=== PATIENT | female | born 1990 | race Caucasian/White ===

== ENCOUNTER 2025-02-06 14:20 | Emergency (ER) | payer OTHER, SELFPAY ==
[2025-02-06 14:35] VITALS: BP 127/77; PULSE 85; TEMP 36.8; O2SAT 100; BMI 24.8
--- OUTSIDE RECORDS SUMMARY | 2025-02-06 14:47 | XMS_ITS | Clinical Summary ---
Author Organization [facility] tem Address [id number] [address] [place] [address] Care Team Providers [employer] Coordinator Name Role Phone No Pcp, No Pcp Primary Care Provider Unavailabl e Allergies Active Allergy Reactions Criticality Noted Date Comments Erythromycin 02/09/2023 Sulfa (Sulfonamide Antibiotics) 01/24 Social History Tobacco Use Types Packs/Day Years Used Date Smoking Tobacco: Never Smokeless Tobacco: Never Tobacco Cessation:Counseling Given: Not Answered Alcohol Use Standard Drinks/Week Comments Never 0 (1 standard drink = 0.6 oz pur e alcohol) Childcare Answer Date Recorded Childcare Unknown 01/05/2019 Employment Answer Date Recorded Employment Unknown 01/05/2019 Hunger Screening Answer Date Recorded Within the past 12 months we worried whether our food would run out before we got money to buy more. Never True 02/09/2023 Within the past 12 months th e food we bought just didn't last and we didn't have money to get more. Never True 02/09/2023 Comments No Sex and Gender Information Value Date Recorded Sex Assigned at Female 02/09/2023 9:07 AM EDT Legal Sex Female 12:12 PM EDT Gender Identity Female 02/09/2023 9:07 AM EDT Sexual Orientation Straight 02/09/2023 9: 07 AM EDT Last Filed Vital Signs Vital Sign Reading Time Taken Comments Blood Pressure 121/82 02/09/2023 9:17 AM EDT Pulse 81 02/09/2023 9:17 AM EDT Temperature 36.5 C (97.7 F) 02/09/2023 9:17 AM EDT Respiratory Rate 14 02/09/2023 9:17 AM EDT Oxygen Saturation 100% 02/09/2023 9:17 AM EDT Inhaled Oxygen Concentration - - Weight 73.9 kg (163 lb) 02/09/2023 9:17 AM EDT Height 165.1 cm (5' 5 ) 02/09/2023 9:17 AM EDT Body Mass Index 27.12 02/09/2023 9:17 AM EDT Plan of Treatment Health Maintenance Due Date Last Done Comments Depression Screening 2000 DTaP,Tdap and Td Vaccines (1 - Tdap) 02/26/2007 Pap Smear 02/26/2009 Adult BMI Screening 02/10/2024 02/09/2023 Tobacco Screening 02/10/2024 02/09/2023 COVID-19 Vaccine (2023-2 5 season) 2024 07/01/2021, 09/05/2020, 08/09/2020 Influenza Vaccine 03/27/2025 04/26/2019, 04/26/2019 Medical Devices Not on file Insurance [facility] [employer] Care Teams [employer] Coordinator Relationship Specialty Start Date End Date No Pcp, No Pcp CHRISTAL Agosto [id number] PCP - General Family Medicine 02/09/23
--- OUTSIDE RECORDS SUMMARY | 2025-02-06 14:47 | XMS_ITS | Data Portability ---
Author Organization [place] - .[facility], [facility] Address [address] [place] [address] Care Team Providers Care Pop Singer Name Role Phone DOMINIC GIBSON Primary Care Provider Assessment No assessment recorded. Plan of Treatment Reminders Order Date Submit Date Provider Last Modified By Organization Details Last Modified Time Details Appointments None recorded. Lab rapid SARS CoV 2 Ag, QL IA, respiratory specimen 2022 023 yoni [facility] [address], [address] [place] [address], [id number], 3 21:07:21 SARS CoV 2 RNA (COVID-19), QL, certified adaptive physical educator-PCR, respiratory specimen 2022 023 [facility], [address] [place] [address], [address], 3 01:18:00 rapid strep group A, throat [address] [facility], [address] [place] [address], [phone], 3 20:58:17 culture, throat 2022 023 [facility], [address] [place], [address], 3 11:19:34 rapid flu (A+B) 2021 022 [facility] [place] , [address] [place], [address], 20:00:27 rapid SARS CoV 2 Ag, QL IA, respiratory specimen 2021 022 [facility] [place] , [address] [place], [address], 20:00:27 rapid strep group A, throat 2021 022 [email or web address] 6 [facility] , [address] [place], [address], 15:34:56 rapid flu (A+B) [email or web address] [facility] , [address] [place], [address], 15:34:56 culture, throat 2021 [facility], [address] [place] [address], [address], 21:40:58 rapid SARS CoV 2 Ag, QL IA, respiratory specimen 2021 [facility] [place] , [address] [place], [address], 16:15:07 SARS CoV 2 RNA (COVID-19), QL, certified adaptive physical educator-PCR, respiratory specimen 2021 [facility], [address] [place] [address], [address], 01:06:38 culture, throat 2021 [facility], [address] [place] [address], [address], 22:39:39 rapid strep group A, throat 2021 [place] [id number] 2 [facility] [place] [address] [place], [address], 20:17:42 rapid SARS CoV 2 Ag, QL IA, respiratory specimen 2021 [place] [id number] 2 [facility] [address] [place], [address], 20:17:42 SARS CoV 2 RNA (COVID-19), QL, certified adaptive physical educator-PCR, respiratory specimen 2021 [facility], [address] [place], [address], 02:24:04 rapid flu (A+B) 2021 [place] [id number] 2 [facility] [address] [place], [address], 20:17:42 CT + NG DNA, PCR, unspecified specimen 2021 [facility], [address] [place] [address], [address], 17:16:31 Referral None recorded. Procedures None recorded. Surgeries None recorded. Imaging None recorded. Medication Orders amoxicillin 875 mg tablet 2022 023 rrluigi [place] Reade - [address] [place], [place], [id number], 3 20:58:17 Diflucan 150 mg tablet 2022 023 rrenacci Sergio Reade - [address] [place], [place], [id number], 3 20:58:17 amoxicillin 875 mg tablet 2021 022 [email or web address] 2 Sergio Ren - [address], [place], [place], [id number], 20:17:42 Patient TargetsNo targets recorded. Patient Instructions Encounter Date Encounter Id Patient Instructions Last Modified By Organization Details Last Modified Time 05/01/2022 [id number] A healthy lifest yle: care instructions [email or web address] Not available 05/01/2022 20:17:42 Thank you for visiting [facility]. There are two ways to view your lab results: : 1. The dINK jose is available to all patients 18 and older in the [employer] Store and [employer]. First-time jose users will need to create an account; please note you ll need to select a login and password for the jose versus just using your patient portal login credentials. Your lab results will be posted to the dINK jose as soon as they re available. 2. Via email , as soon as lab results are available. If you don t receive an email within the estimated time frame, give our Aftercare team a call at [phone]. [email or web address] Not available 05/01/2022 15:13:39 06/04/2022 [id number] A healthy lifest yle: care instructions Not available 06/04/2022 15:46:18 9 things to do i f you've been exposed to covid-19 Not available 06/04/2022 15:46:18 Thank you for visiting [facility]. There are two ways to view your lab results: : 1. The dINK jose is available to all patients 18 and older in the [facility] Store and [employer]. First-time jose users will need to create an account; please note you ll need to select a login and password for the jose versus just using your patient portal login credentials. Your lab results will be posted to the dINK jose as soon as they re available. 2. Via email , as soon as lab results are available. If you don t receive an email within the estimated time frame, give our Aftercare team a call at [phone]. [email or web address] Not available 06/04/2022 14:58:40 06/23/2022 [id number] A healthy lifest yle: care instructions [email or web address] Not available 06/23/2022 20:00:27 Thank you for visiting [facility]. There are two ways to view your lab results: : 1. The dINK jose is available to all patients 18 and older in the [employer] Store and [employer]. First-time jose users will need to create an account; please note you ll need to select a login and password for the jose versus just using your patient portal login credentials. Your lab results will be posted to the dINK jose as soon as they re available. 2. Via email , as soon as lab results are available. If you don t receive an email within the estimated time frame, give our Aftercare team a call at [phone]. [email or web address] Not available 06/23/2022 19:21:42 12/10/2022 [id number] A healthy lifest yle: care instructions [email or web address] Not available 12/10/2022 20:58:17 Thank you for visiting [facility].There are two ways to view your lab results: : 1. The dINK jose is available to all patients 18 and older in the [employer] Store and [employer]. First-time jose users will need to create an account; please note you ll need to select a login and password for the jose versus just using your patient portal login credentials. Your lab results will be posted to the dINK jose as soon as they re available. 2. Via email , as soon as lab results are available. If you don t receive an email within the estimated time frame, give our Aftercare team a call at [phone]. Otalgia Your Care Instructions Even though infection is a common cause of ear pain, not all ear pain means an infection. If you have ear pain and don''t have an infection, it could be because of a jaw problem, such as temporomandibular joint (TMJ) pain. Or it could be because of a neck problem. When ear discomfort or pain is mild or comes and goes without other symptoms, home treatment may be all you need. Follow-up care is a clark part of your treatment and safety. Be sure to make and go to all appointments, and call your doctor if you are having problems. It''s also a good idea to know your test results and keep a list of the medicines you take. How can you care for yourself at home? Apply heat on the ear to ease pain. To apply heat, put a warm water bottle, a heating pad set on low, or a warm cloth on your ear. Do not go to sleep with a heating pad on your skin. Take an mljr-ohu-ffltmfe pain medicine, such as acetaminophen (Tylenol), ibuprofen (Advil, Motrin), or naproxen (Aleve). Be safe with medicines. Read and follow all instructions on the label. Do not take two or more pain medicines at the same time unless the doctor told you to. Many pain medicines have acetaminophen, which is Tylenol. Too much acetaminophen (Tylenol) can be harmful. Never insert anything, such as a cotton swab or a josef pin, into the ear. When should you call for help? Call your doctor now or seek immediate medical care if: You have new or worse symptoms of infection, such as: Increased pain, swelling, warmth, or redness. Red streaks leading from the area. Pus draining from the area. A fever. Watch closely for changes in your health, and be sure to contact your doctor if: You have new or worse discharge coming from the ear. You do not get better as expected. Pharyngitis Your Care Instructions Infection by bacteria or a virus causes most sore throats. Cigarette smoke, dry air, air pollution, allergies, and yelling can also cause a sore throat. Sore throats can be painful and annoying. Fortunately, most sore throats go away on their own. If you have a bacterial infection, your doctor may prescribe antibiotics. Follow-up care is a clark part of your treatment and safety. Be sure to make and go to all appointments, and call your doctor if you are having problems. It''s also a good idea to know your test results and keep a list of the medicines you take. How can you care for yourself at home? If your doctor prescribed antibiotics, take them as directed. Do not stop taking them just because you feel better. You need to take the full course of antibiotics. Gargle with warm salt water once an hour to help reduce swelling and relieve discomfort. Use 1 teaspoon of salt mixed in 1 cup of warm water. Take an gxrb-psf-knqtbka pain medicine, such as acetaminophen (Tylenol), ibuprofen (Advil, Motrin), or naproxen (Aleve). Read and follow all instructions on the label. Be careful when taking upft-lnu-xtuykay cold or flu medicines and Tylenol at the same time. Many of these medicines have acetaminophen, which is Tylenol. Read the labels to make sure that you are not taking more than the recommended dose. Too much acetaminophen (Tylenol) can be harmful. Drink plenty of fluids. Fluids may help soothe an irritated throat. Hot fluids, such as tea or soup, may help decrease throat pain. Use bbco-lhb-yfowkpd throat lozenges to soothe pain. Regular cough drops or hard candy may also help. These should not be given to young children because of the risk of choking. Do not smoke or allow others to smoke around you. If you need help quitting, talk to your doctor about stop-smoking programs and medicines. These can increase your chances of quitting for good. Use a vaporizer or humidifier to add moisture to your bedroom. Follow the directions for cleaning the machine. When should you call for help? Call your doctor now or seek immediate medical care if: You have new or worse trouble swallowing. Your sore throat gets much worse on one side. Watch closely for changes in your health, and be sure to contact your doctor if you do not get better as expected. [email or web address] Not available 12/10/2022 20:45:53 03/26/2023 [id number] A healthy lifest yle: care instructions [email or web address] Not available 03/26/2023 21:07:21 9 things to do i f you've been exposed to covid-19 [email or web address] Not available 03/26/2023 21:07:21 Thank you for visiting [facility]. We may be calling you to review your lab results or schedule a follow up appointment. The call will be through an automated system which asks you to press a clark to speak with one of our agents. Please be on the lookout for this call and listen to the message in its entirety. You may also view your lab results using the dINK jose, available in the [employer] Store and [employer]. First-time jose users will need to create an account; please note you ll need to select a login and password for the jose versus just using your patient portal login. Your lab results will be posted to the dINK jose as soon as they re available. If you have any questions regarding your visit, our Aftercare department can be reached at [phone]. Our hours are Thursday from 8 am 11 pm or Thursday/Thursday from 9a 8p. [email or web address] Not available 03/26/2023 20:03:51 Reason for Referral None Reported. Results Created Date Observation Date Name Description Value Unit Range Abnormal Flag Note LastModifiedBy Organization Detail LastModifiedTime 05/01/20 22 05/02/2022 CULTU RE THROA T culture, throat SEE NOTE CULTU RE, THROA T Micro Numbe r: [id number] Test Statu s: Final Speci men Sourc e: Not given Speci men Quali ty: Adequ ate Resul t: No oroph aryng eal patho gens recov ered. Not Available [facility] [address] [facility], [place], [address], 05/02/2022 22:39:39 05/01/20 22 05/03/2022 SARS COV 2 RT-PC R sars cov 2 RNA NOT DETECT ED not detect ed normal A Not Detec buck resul t means that SARS- CoV-2 RNA was not prese nt in the speci men above the limit of detec tion. A Not Detec buck resul t does not rule out the possi bilit y of COVID -19 and shoul d not be used as the sole basis for treat ment or patie nt manag ement decis ions. If COVID -19 is still suspe cted, based on expos ure histo ry toget her with other clini cody findi ngs, re-te sting shoul d be consi dered in the yolanda xt of clini cody obser vatio ns and epide miolo gical data for patie nt manag ement decis ions. Test Metho d: Nucle ic Acid Ampli ficat ion Test inclu ding rever se trans cript ion polym erase chain react ion (RT-P CR) and trans cript ion media buck ampli ficat ion (TMA) . The test metho d meets the [place] Cente rs for Disea se Contr ol and preve ntion ([facility]) pre depar ture and arriv al requi remen t for viral test for COVID -19 dated 2020. Testi ng requi remen ts for travgraciela franco may carney e with time. The patie nt is respo nsibl e for deter minin g the test requi remen ts for each natio n while they are travgraciela franco. This test has been autho rized by the FDA under an Emerg ency Use Autho rizat ion (EUA) for use by autho rized labor atori es. Plemalissa e damian w the Fact Sheet s and FDA autho rized label ing avail able for healt h care provi ders and patie nts using the follo wing websi kelly: https ://flaco w.que stdia gnost ics.c om/ho me/Co vid-1 9/HCP /Ques tIVD/ fact- sheet .html https ://flaco w.que stdia gnost ics.c om/ho me/Co vid-1 9/Pat ients / [facility] IVD/f act-s heet. html Due to the curre nt publi c healt h emerg ency, [facility] is accep meredith melendez es from appro priat e clini cody sourc es colle cted using wide varie ty of swabs and trans port media for COVID -19. Not detec buck test resul ts deriv ed from speci mens recei ned in non- comme rcial ly manuf actur ed viral colle ction kits or those not yet autho rized by FDA for COVID -19 testi ng shoul d be cauti ously evalu ated and take extra preca ution s such as addit ional clini cody monit oring , inclu ding colle ction of an addit ional speci men. Addit ional infor matio n about COVID -19 can be found at the [facility] websi te: www.Kristy uAlonzo iagno stics .com/ Covid 19. For patie nts with a Detec buck or Incon clusi ve test resul t, pleas e see CDC's COVID -19 Treat ments and Medic ation s page locat ed at https ://ww w.cdc .gov/ coron aviru s/ 9-nco v/you r-hea lth/t reatm ents- for- sever e-ill ness. html for infor matio n on COVID -19 thera peuti cs. For patie nts with a Not Detec buck test resul t, pleas e see CDC's Vacci nandini for COVID -19 page locat ed at https ://ww w.cdc .gov/ coron aviru s/ 9-nco v/vac cines /inde x.htm l for infor matio n on COVID -19 vacci nandini. Not Available [facility] [address] [place] [address], [address], 05/03/2022 02:24:04 05/01/20 22 05/03/2022 CHLAM YDIA/ GC RNA TMA THROA T/ORA L chlamydia trachomatis RNA, tma, throat NOT DETECT ED not detect ed normal Not Available [facility] [address] [place] [address], [address], 05/03/2022 17:16:30 05/01/20 22 05/03/2022 CHLAM YDIA/ GC RNA TMA THROA T/ORA L neisseria gonorrhoeae RNA, tma, throat NOT DETECT ED not detect ed normal Not Available [facility] [address] [place] [address], [address], 05/03/2022 17:16:30 05/01/20 22 05/03/2022 CHLAM YDIA/ GC RNA TMA THROA T/ORA L comment SEE NOTE The marcus tical perfo rmanc e jeremi cteri stics of this assay have been deter mined by [facility] Sandra anton. The modif icati ons have not been clear ed or appro ned by the FDA. This assay has been valid ated pursu ant to the CLIA regul ation s and is used for clini cody purpo ses. Not Available d Lab [address] [place], [address], 05/03/2022 17:16:30 05/01/20 22 05/01/2022 rapid flu (A+B) Flu A (control pos) NEGATI VE Not Available [address] [place] [address], [address], 05/01/2022 15:17:29 05/01/20 22 05/01/2022 rapid flu (A+B) Flu B (control pos) NEGATI VE Not Available [address] [place] [address], [address], 05/01/2022 15:17:29 05/01/20 22 05/01/2022 rapid SARS CoV 2 Ag, QL IA, respi rator y speci men Rapid COVID-19 Antigen (Internal Control Positive) Negati ve Not Available [address] [place] [address], [address], 05/01/2022 15:17:17 05/01/20 22 05/01/2022 rapid strep group A, throa t Group A Strep / internal control positive NEGATI VE (inter nal contro l positi ve) Not Available [facility] [address] [place] [address], [address], 05/01/2022 15:17:15 06/04/20 22 06/05/2022 CULTU RE THROA T culture, throat SEE NOTE CULTU RE, THROA T Micro Numbe r: [id number] Test Statu s: Final Speci men Sourc e: Not given Speci men Quali ty: Adequ ate Resul t: No oroph aryng eal patho gens recov ered. Not Available d [facility] [address], [place], [address], 06/05/2022 21:40:58 06/04/20 22 06/06/2022 SARS COV 2 RT-PC R sars cov 2 RNA NOT DETECT ED not detect ed normal A Not Detec buck resul t means that SARS- CoV-2 RNA was not prese nt in the speci men above the limit of detec tion. A Not Detec buck resul t does not rule out the possi bilit y of COVID -19 and shoul d not be used as the sole basis for treat ment or patie nt manag ement decis ions. If COVID -19 is still suspe cted, based on expos ure histo ry toget her with other clini cody findi ngs, re-te sting shoul d be consi dered in the yolanda xt of clini cody obser vatio ns and epide miolo gical data for patie nt manag ement decis ions. Test Metho d: Nucle ic Acid Ampli ficat ion Test inclu ding rever se trans cript ion polym erase chain react ion (RT-P CR) and trans cript ion media buck ampli ficat ion (TMA) . The test metho d meets the US Cente rs for Disea se Contr ol and preve ntion (CDC) pre depar ture and arriv al requi remen t for viral test for COVID -19 dated 2020. Testi ng requi remen ts for trave ling may carney e with time. The patie nt is respo nsibl e for deter minin g the test requi remen ts for each natio n while they are trave ling. This test has been autho rized by the FDA under an Emerg ency Use Autho rizat ion (EUA) for use by autho rized labor atori es. Pleas e damian w the Fact Sheet s and FDA autho rized label ing avail able for healt h care provi ders and patie nts using the follo wing websi kelly: https ://flaco ornelas.harleen stdia gnost ics.c om/ho me/Co vid-1 9/HCP /Ques tIVD/ fact- sheet .html https ://flaco ornelas.harleen stdia gnost ics.c om/ho me/Co vid-1 9/Pat ients / [facility] IVD/f act-s heet. html Due to the curre nt publi c healt h emerg ency, [facility] is accep ting sampl es from appro priat e clini cody sourc es colle cted using wide varie ty of swabs and trans port media for COVID -19. Not detec buck test resul ts deriv ed from speci mens recei ned in non- comme rcial ly manuf actur ed viral colle ction kits or those not yet autho rized by FDA for COVID -19 testi ng shoul d be cauti ously evalu ated and take extra preca ution s such as addit ional clini cody monit oring , inclu ding colle ction of an addit ional speci men. Addit ional infor matio n about COVID -19 can be found at the [facility] websi te: www.Giant Realm uestD creadso In Flow .ICONOGRAFICO/ Covid 19. For patie nts with a Detec buck or Incon clusi ve test resul t, pleas e see CDC's COVID -19 Treat ments and Medic ation s page locat ed at https ://ww w.cdc .gov/ coron aviru s/201 9-nco v/you r-hea lth/t reatm ents- for- sever e-ill ness. html for infor matio n on COVID -19 thera peuti cs. For patie nts with a Not Detec buck test resul t, pleas e see CDC's Vacci nandini for COVID -19 page locat ed at https ://ww w.cdc .gov/ coron aviru s/201 9-nco v/vac cines /inde x.htm l for infor matio n on COVID -19 vacci nandini. Not Available d Lab [address], [place], [address], 06/06/2022 01:06:38 06/04/20 22 06/04/2022 rapid SARS CoV 2 Ag, QL IA, respi rator y speci men Rapid COVID-19 Antigen (Internal Control Positive) Negati ve Not Available [facility] [address] [place], [address], 06/04/2022 15:18:47 06/04/20 22 06/04/2022 rapid flu (A+B) Flu A (control pos) NEGATI VE Not Available [address] [place], [address], 06/04/2022 15:18:51 06/04/20 22 06/04/2022 rapid flu (A+B) Flu B (control pos) NEGATI VE Not Available [facility] [address] [place], [address], 06/04/2022 15:18:51 06/04/20 22 06/04/2022 rapid strep group A, throa t Group A Strep / internal control positive NEGATI VE (inter nal contro l positi ve) Not Available [facility] [address] [place], [address], 06/04/2022 15:18:49 06/23/20 22 06/23/2022 rapid SARS CoV 2 Ag, QL IA, respi rator y speci men Rapid COVID-19 Antigen (Internal Control Positive) Negati ve Not Available [address] [place], [address], 06/23/2022 19:30:17 06/23/20 22 06/23/2022 rapid flu (A+B) Flu A (control pos) NEGATI VE Not Available [address] [place], [address], 06/23/2022 19:30:29 06/23/20 22 06/23/2022 rapid flu (A+B) Flu B (control pos) NEGATI VE Not Available [address] [place] [address], [address], 06/23/2022 19:30:29 12/11/19 23 12/12/2022 CULTU RE THROA T culture, throat SEE NOTE CULTU RE, THROA T Micro Numbe r: [id number] Test Statu s: Final Speci men Sourc e: Not given Speci men Quali ty: Adequ ate Resul t: No oroph aryng eal patho gens recov ered. Not Available [facility] [address] [facility], [place], [address], 12/12/2022 11:19:34 12/11/19 23 12/10/2022 rapid strep group A, throa t Group A Strep / internal control positive NEGATI VE (inter nal contro l positi ve) Not Available [address], [address], 12/10/2022 20:43:17 03/26/20 23 03/28/2023 SARS COV 2 RT-PC R sars-cov-2 RNA (covid19) by PCR NEGATI VE negati ve normal Posit sergio resul ts are indic ative of the prese nce of SARS- CoV-2 RNA; clini cody corre latio n with patie nt histo ry and other diagn ostic infor matio n is neces milo to deter mine patie nt infec tion statu s. Posit sergio resul ts do not rule out bacte rial infec tion or co-in fecti on with other virus es. Posit sergio and negat sergio predi ctive value s of testi ng are highl y depen dent on preva lence . False posit sergio test resul ts are more likel y when preva lence is moder ate to low. The expec buck resul t is Negat sergio (Not Detec buck). The SARS CoV-2 test is inten ded for the quali tativ e detec tion of nucle ic acid from SARS- CoV-2 in nasop haryn geal and oroph aryng eal swab sampl es from patie nts who meet COVID -19 clini cody and/o r epide miolo gical crite laila. Testi ng metho dolog y is Real- Time PCR (RT-P CR) using high- throu ghput techn ology . Test resul ts must be corre lated with clini cody prese ntati on and evalu ated in the yolanda xt of other labor atory and epide miolo gi data. This test has not been Food and Drug Admin istra tion (FDA) clear ed or appro ned and has been autho rized by FDA under an Emerg ency Use Autho rizat ion (EUA) . Summi t Medic MATTHEW Gonzales. Labor atory is certi fied under the Clini cody Labor atory Impro vemen t Amend ments of 1987 (CLIA ), 42 U.S.C . secti on 263a, to perfo rm high compl exity tests . Not Available [facility] [address] [place], [address], 03/28/2023 01:18:00 03/26/20 23 03/26/2023 rapid SARS CoV 2 Ag, QL IA, respi rator y speci men Rapid COVID-19 Antigen (Internal Control Positive) Negati ve Not Available [facility] [address], [address], 03/26/2023 20:25:57 Result Notes None recorded. Problems Name Problem SNOMED Code Status Onset Date Resolution Date Notes Provider Name and Address Organization Details Recorded Time Asthma [id number] Active 021 [facility] - .[facility] 05/15/2021 08:04:18 Problem Notes None recorded. Medical Equipment None Reported. Allergies Allergen ID Allergen Name Allergen Category Reaction Reaction Severity Criticality Documentation Date Start Date Code Code System Note Provider Name and Address Organization Details Recorded Time 963015 Substance with sulfonami de structure and antibacte rial mechanism of action (substanc e) medicatio n Not available Not available Not available 05/15/2021 77640 8003 SNOMED [facility] - .[facility] 08:04:34 786079 azithromy greta medicatio n Not available Not available Not available 05/15/2021 75727 RxNorm [facility] - .[facility] 1 08:05:01 Medications Name Sig Start Date Stop Date Status Note LastModified by Organization Details LastModified Time methocarbamo l 500 mg tablet TAKE 3 TABLETS BY MOUTH FOR 1ST DOSE, THEN TAKE 2 TABLETS BY MOUTH EVERY 6 HOURS FOR 3 DAYS active Not Available Not Available No t Available Afrin Sinus (oxymetazoli ne) 0.05 % nasal spray [place] 2 sprays twice a day by intranasal route as needed for 3 days. 2020 active Not Available Not Available Not Avai lable Diflucan 150 mg tablet Take 1 tablet every day by oral route for 1 day. 2022 active Not Available Not Available Not Avai lable amoxicillin 875 mg tablet Take 1 tablet twice a day by oral route for 7 days. 2022 active Not Available Not Available Not Avai lable nitrofuranto in monohydrate/ macrocrystal s 100 mg capsule TAKE 1 CAPSULE BY MOUTH TWICE A DAY FOR 7 DAYS active Not Available Not Available No t Available Flonase Allergy Relief 50 mcg/actuatio n nasal spray,suspen ashanti [place] one spray into each nostril twice a day for 14 days 2020 active Not Available Not Available Not Avai lable Vitals Date Recorded Body height Heart rate Body temperature Respiratory rate Oxygen saturation Oxygen saturation in Arterial blood by Pulse oximetry Systolic And Diastolic Provider Name and Address Organization Details Last Updated DateTime 3 165.1 cm 84 /min 98.1 [degF] 16 /min 98 % 98 % 113/76 mm[Hg] Kulwinder Blackman [place] - .[facility] 3 20:36:04 Date Recorded Body height Body mass index (BMI) Body weight Respiratory rate Oxygen saturation Oxygen saturation in Arterial blood by Pulse oximetry Body temperature Heart rate Systolic And Diastolic Provider Name and Address Organization Details Last Updated DateTime 3 165.1 cm 31.6 kg/m2 47257.5 5 g 16 /min 98 % 98 % 97.8 [degF] 82 /min 103/72 mm[Hg] Nandini Willis [place] - [facility] 3 20:16:07 Date Recorded Body height Body mass index (BMI) Body weight Heart rate Body temperature Respiratory rate Oxygen saturation Oxygen saturation in Arterial blood by Pulse oximetry Systolic And Diastolic Provider Name and Address Organization Details Last Updated DateTime 2 165.1 cm 31.6 kg/m2 36178.5 5 g 71 /min 98.2 [degF] 16 /min 99 % 99 % 124/78 mm[Hg] Aashish Johnny [place] - .[facility] 2 15:13:34 Date Recorded Body height Body mass index (BMI) Body weight Heart rate Body temperature Respiratory rate Oxygen saturation Oxygen saturation in Arterial blood by Pulse oximetry Systolic And Diastolic Provider Name and Address Organization Details Last Updated DateTime 2 165.1 cm 31.6 kg/m2 78802.5 5 g 85 /min 98.1 [degF] 16 /min 97 % 97 % 112/78 mm[Hg] Aashish MILNER - .[facility] 2 15:18:31 Date Recorded Body height Body mass index (BMI) Body weight Oxygen saturation Oxygen saturation in Arterial blood by Pulse oximetry Respiratory rate Body temperature Heart rate Systolic And Diastolic Provider Name and Address Organization Details Last Updated DateTime 2 165.1 cm 31.6 kg/m2 34028.5 5 g 98 % 98 % 16 /min 98.1 [degF] 79 /min 117/76 mm[Hg] Dewayne Chavez [place] - .[facility] 2 19:30:00 Social History Question Answer Notes LastModified by Organizat ion Details LastModified Time Tobacco Smoking Status Never Smoker [facility] - .[facility] 05/15/2021 08:05:16 RISK LEVEL - Segmentation Level 1 - Healthy [email or web address] Information not available 10/03/2021 Sex: Unknown Functional Status Question Answer Note LastModified by Organizat ion Details LastModified Time 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 Family History Nothing Reported. Medical History No medical history recorded. Gynecological HistoryNo gynecological history recorded. Obstetrics History GPAL:G 0 P 0 0 0 0 Immunizations Vaccine Type Date Status Note Provider Nam e and Address Organization Details Recorded Time Influenza, split virus, quadrivalent, PF 04/26/2019 completed [facility] .[facility] 06/04/2022 15:42:27 COVID-19, mRNA, LNP-S, PF, 100 mcg/0.5mL dose or 50 mcg/0.25mL dose 07/01/2021 completed [facility] - .[facility] 06/04/2022 15:42:27 COVID-19, mRNA, LNP-S, PF, 100 mcg/0.5mL dose or 50 mcg/0.25mL dose 09/05/2020 completed [facility] - .[facility] 06/04/2022 15:42:27 COVID-19, mRNA, LNP-S, PF, 100 mcg/0.5mL dose or 50 mcg/0.25mL dose 08/09/2020 completed [facility] - .[facility] 06/04/2022 15:42:27 Past Encounters Encounter ID Performer Location Encounter Start Date Encounter Closed Date Diagnosis/Indication Diagnosis SNOMED-CT Code Diagnosis ICD10 Code Diagnosis Note [id number] JOSEFA TRIVEDI MD [address] [address] 05/15/2021 07:21:49 05/15/2021 08:20:08 Exposure to SARS-CoV-2 714834159 Z20.822 Viral syndrome 272790807 B34.9 [id number] Mayur Zaidi MD [address] [place] [address] 6 05/01/2022 14:52:53 05/01/2022 15:18:30 Acute otitis media 7676129 H66.92 Sore throat 816744998 J0 2.9 [id number] Jason Avalos MD [address] [place] [address] 6 06/04/2022 14:54:17 06/04/2022 15:21:27 Exposure to SARS-CoV-2 287624007 Z20.822 Viral syndrome 399413595 B34.9 Likely viral. Discussed supportive care with rest and hydration. Advised otc symptomati c medication . Follow up if worsening symptoms with fever, chest pain/tight ness, or sob. Pt understood and agreed to plan. [id number] Manohar Higgins MD [facility] [place] [address] [place] [address] 06/23/2022 19:11:03 06/23/2022 19:32:02 Exposure to SARS-CoV-2 271928140 Z20.822 Viral syndrome 919656444 B34.9 [id number] JOSEFA TRIVEDI MD [place] [address] 8 12/10/2022 19:30:05 12/10/2022 20:46:20 Otalgia of right ear 7722111588 H92.01 Pharyngitis 138932796 J0 2.9 [id number] Christal Hill v, MD [place] [address] 8 03/26/2023 19:49:14 03/26/2023 20:35:18 Exposure to SARS-CoV-2 524258825 Z20.822 Cough 69736793 R05.9 Health Concerns Section Related Observation LastModified by Organization Detai ls LastModified Time None Recorded Concern Status LastModified by Organization Details LastModified Time None Recorded Advance Directives Directive None Recorded Payers Insurance Date Sequence Insurance Name Policy Number Policy [place] Covered Member ID [place] Member ID Guarantor Name 04/01/2023 1 [facility] ([facility] [id number] Aruea Tierney [id number] 1 Aurea Tierney 05/01/[address] [facility] [address] Aurea Tierney [id number] 1 Aurea Tierney 10/01/2022 4 [facility] [id number] Aurea Tierney [id number] 1 Aurea Quintanaen 05/01/2022 3 [facility] [id number] Aurea Tierney [id number] 1 Aurea Tierney Notes Date Note Type Note Provider Name and Address Organization Details Recorded Time 05/01/2022 text/html Sore throat - cmdReported bypatient.Patient presents with:Sore throat complaint which began 2-3 days ago Pertinent findings:No fever; No nasal congestion; No sinus congestion; No ear complaints; No eye complaints; No cough; No shortness of breath; No exposure to strep;(+) painful swallowing 32 y/o F c/o sore throat for 2 days.Pt denies fever, sob, cp or any other acute symptms.Pt is fully covid vaccinated.Pt requesting covid/strep/flu/s ti(aptima throat swab) testing. Mayur Zaidi MD [address] [facility],[address], [place], [address], [facility] - .[facility] 05/01/2022 19:38:05 06/04/2022 text/html COVID-19 VISIT - cmdReported bypatient.Patient presents forCOVID-19 VISIT Pertinent findings:No fever; NO nasal symptoms; No CP; No SOB;(+) body aches;(+) sore throat;(+) cough 32 y/o F c/o sore throat, body aches, cough, subjective fever for 2 days.Pt denies fever, sob, cp or any other acute symptoms.Pt is fully covid vaccinated.Pt is requesting covid/flu/strep testing. [facility] - .[facility] 06/04/2022 15:43:58 06/23/2022 text/html COVID-19 VISIT - cmdReported bypatient.Patient presents forCOVID-19 VISIT Pertinent findings:NO sore throat; NO nasal symptoms; No CP; No leg swelling; No neurologic deficits; No SOB;(+) fever (T > 100.0);(+) body aches;(+) cough COVID vaccination status:(+) COVID Vaccination Moderna;Received BOOSTER Moderna Employer / School information(+) WORKING (name, address, phone?): 32 y/o F c/o body aches, cough, subjective fever for 1 day.Pt denies fever, sob, cp or any other acute symptoms.Pt is fully covid vaccinated.Pt is requesting covid/flu Manohar Higgins MD [address] [facility],[address], [place], [address], [facility] - .[facility] 06/23/2022 19:46:29 12/10/2022 text/html 32 y/o F c/o RT ear pain and sore throat x2 weeks. Pt reports she went scuba diving in [place] a month ago but reports the pain was not that severe. pt denies f/c/n/v/d. JOSEFA TRIVEDI MD [address] [place] [address],[address] [facility], [place], [address], [place] - .[facility] 12/10/2022 22:16:02 03/26/2023 text/html 33 y/ M reports she returned from [place] x4 days. pt reports since she has been in [place] shes been cough and reports mucinex with no relief. reports taking dayquil with no relief and taking nyquil which helped at night. pt reports taking 2 at home covid test Thursday and Thursday and results were negative. pt reports individual she was on the trip with tested positive for covid this morning pt reports feeling feverish ad fatigue. reports she is suppose travel tomorrow. reports dificulty hearing out of left ear. [facility] - .[facility] 03/26/2023 21:15:19 OBGyn Episode No OBEpisode recorded.
--- NOTE | 2025-02-06 15:08 | PC.NURSE ---
PT STATE HAD MISCARRIAGE ON 01/26 WITH SUCTION . PT STATES LOWER PELVIC AND VAGINA PAIN. PT ALSO HAVE PAINFUL URINATION
--- NOTE | 2025-02-06 15:41 | US_ITS ---
The [address] [address] Patient Name: MORTEZA OJEDA MRN: [id number] date: 1990 Sex: F Assigned Patient Location: ER Current Patient Location: ER Accession/Order Number: [id number] Exam Date: 02/06/2025 17:28 Report Date: 02/06/2025 17:35 At the request of: TEMITOPE CHANG NP Procedure: US pelvis transvaginal EXAMINATION TYPE: US pelvis transvaginal Grayscale, color scale Doppler, vascular duplex analysis of the bilateral ovaries DATE OF EXAM ORDERED: 02/06/2025 5:06 PM HISTORY: miscarriage s/p vacuum procedure 01/26, pain/ bleed COMPARISON: NONE TECHNIQUE: Realtime Transvaginal and Transabdominal imaging was performed. Transvaginal imaging was utilized to better evaluate the ovaries and the endometrial stripe. Grayscale, color scale Doppler, vascular duplex analysis of the bilateral ovaries was performed to assess blood flow. FINDINGS: The uterus measures 8.1 x 4.1 x 4.8 cm. Along the superior aspect of the uterus near the left adnexa there is a 2.2 x 2.4 x 3.0 cm heterogeneous structure with isoechoic to hyperechoic solid components. This is of uncertain etiology but may represent a fibroid. Endometrium: Normal thickness and appearance. The endometrium measures 2 mm in thickness. Ovaries: The visualized ovaries are within normal limits for songraphic evaluation. Right Ovary measurements: 2.0 x 1.6 x 2.2 cm Left Ovary measurements: 2.0 x 1.1 x 2.3 cm No abnormal adnexal mass is seen. No free fluid in the pelvic cul-de-sac. Vascular duplex analysis of the bilateral ovaries demonstrates normal blood flow without evidence of ovarian ischemia. US/US pelvis transvaginal IMPRESSION: Along the superior aspect of the uterus near the left adnexa there is a 2.2 x 2.4 x 3.0 cm heterogeneous structure with isoechoic to hyperechoic solid components. This is of uncertain etiology but may represent a fibroid. The endometrium is normal in thickness and appearance measuring 2 mm in thickness. No evidence of retained products of conception within the endometrial canal. No evidence of ovarian ischemia. Impression dictated by: Rico Sullivan M.D. 02/06/2025 5:35 PM Dictation Location: [place] [address] Electronically authenticated by: [id number] Y Date: 02/06/2025 17:35
[2025-02-06 15:48] LABS: Hematocrit 41.4 % (36.0-48.0); Hemoglobin 13.7 g/dL (12.0-16.0); Immature Granulocytes Abs Auto 0.04 10^3/uL (0.00-0.03); Immature Granulocytes Pct Auto 0.4 % (0.0-0.5); Lymphocytes Absolute Auto 2.0 10^3/uL (1.2-3.8); Mean Corpuscular HGB Conc 33.1 g/dL (29.9-35.2); Mean Corpuscular Hemoglobin 29.9 pg (26.7-34.0); Mean Corpuscular Volume 90.4 fL (81.0-99.0); Platelet Count 252 10^3/uL (150-450); Red Blood Count 4.58 10^6/uL (4.20-5.40); White Blood Count 9.5 10^3/uL (4.0-11.0)
[2025-02-06 16:16] LABS: Alanine Aminotransferase 26 U/L (14-59); Albumin Globulin Ratio 1.3; Albumin Level 4.2 g/dL (3.4-5.0); Alkaline Phosphatase 43 U/L (46-116); Anion Gap 16.1; Aspartate Amino Transferase 18 U/L (15-37); Blood Urea Nitrogen 14.0 mg/dL (7.0-18.0); Calcium 9.4 mg/dL (8.5-10.1); Carbon Dioxide 25.6 mmol/L (21.0-32.0); Chloride 104 mmol/L (98-107); Estimated GFR (African America >60 (>=60 mL/min/1.73m^2); Estimated GFR (Non-African Ame >60 (>=60 mL/min/1.73m^2); Globulin 3.3 g/dL; Glucose 89 mg/dL (74-106); Potassium 3.7 mmol/L (3.5-5.1); Sodium 142 mmol/L (136-145); Total Protein 7.5 g/dL (6.4-8.2)
--- NOTE | 2025-02-06 16:20 | ED.GENADUL1 ---
HPI HPI - General Adult General Chief complaint: Vaginal Bleeding Stated complaint: VAGINAL PAIN Time Seen by Provider: 02/06/25 14:58 Source: patient Mode of arrival: walk-in Limitations: no limitations History of Present Illness HPI narrative: Patient is a 34-year-old female who presents to the emergency department today for evaluation of concerns for vaginal bleeding and pelvic discomfort. She endorses she had a miscarriage earlier this month and did have a vacuum procedure on 01/26. She reports this was done in [place] where she currently lives. She reports since yesterday she has had some spotting that is more noticeable being after using the washroom. She does endorse over the past few days having had vaginal intercourse once but states she was instructed this would be okay after a week following the procedure per the discharge instruction she was provided. She does endorse some pressure and discomfort with urinating. Otherwise no abdominal pain or nausea/vomiting. She denies any fever/chills. No back or flank pain. She mention she is not on any antiplatelet or anticoagulant medications. Related Data Allergies Allergy/AdvReac Type Severity Reaction Status Date / Time Sulfa (Sulfonamide Allergy Severe Rash Verified 02/06/25 14:35 Antibiotics) erythromycin base Allergy Rash Verified 02/06/25 14:35 Opioid HPI Opioid Management Most Recent Opioid Data: Last Pain Scale 2 Today, 14:35 Review of Systems ROS Status of ROS 10 or more systems reviewed and unremarkable except as noted in history and below PFSH PFSH Social History Little interest or pleasure in doing things: not at all Feeling down, depressed, or hopeless: not at all Exam Narrative Exam Narrative: Constituational: Awake/ alert, no apparent distress, well hydrated HENMT: normocephalic, external ears normal, moist oral mucous membranes and oropharynx normal Eyes: EOMI and conjunctivae normal Neck: ROM intact Chest: inspection of chest normal Respiratory: Normal respiratory effort, clear to auscultation bilaterally Cardio: regular rate and regular rhythm GI: soft to palpation and non-tender : normal external exam, + brown/sanguinous vaginal discharge in vaginal vault, normal cervix, no CMT or adnexal tenderness Back: nontender MSK: ROM intact, +NVI Skin: no rashes or petechiae Neuro: no focal deficits Psych: mental status grossly normal Constitutional Vital Signs, click to edit/add: Last Vital Signs Temp 98.3 F 02/06/25 14:35 Pulse 85 02/06/25 14:35 Resp 16 02/06/25 14:35 BP 127/77 02/06/25 14:35 Pulse Ox 100 02/06/25 14:35 O2 Del Method Room Air 02/06/25 14:35 Course Vital Signs Vital signs: Vital Signs Temperature 98.3 F 02/06/25 14:35 Pulse Rate 85 02/06/25 14:35 Respiratory Rate 16 02/06/25 14:35 Blood Pressure 127/77 02/06/25 14:35 Pulse Oximetry 100 02/06/25 14:35 Oxygen Delivery Method Room Air 02/06/25 14:35 Temperature 98.3 F 02/06/25 14:35 Pulse Rate 85 02/06/25 14:35 Respiratory Rate 16 02/06/25 14:35 Blood Pressure 127/77 02/06/25 14:35 Pulse Oximetry 100 02/06/25 14:35 Oxygen Delivery Method Room Air 02/06/25 14:35 Medical Decision Making MDM Narrative Medical decision making narrative: The patient is a nontoxic and well-appearing 34-year-old female who presented to the emergency department today for evaluation concerns for vaginal spotting following a vacuum procedure to remove proximal of conception following reported miscarriage on 01/26. Initial examination vital signs overall stable. No acute abdominal findings on exam. No acute exam findings on pelvic exam. Historically patient had endorsed some pressure with urinating. Urinalysis is negative for UTI. Labs stable as below. Transvaginal ultrasound additionally without critical findings including retained products of conception however there is noted suspicion for uterine fibroid. Discussed the above with the patient including recommendations for supportive care. Patient was offered analgesic medication while in the emergency department and declined she did mention her pain did not be that significant. Advised on follow-up with patient's ARMORED MACHINE OPERATOR for reevaluation. Historically patient does reside in [place] however she was provided referral for ARMORED MACHINE OPERATOR locally. Discussed signs and symptoms of any worsening condition and when to consider reevaluation by the emergency department. Patient verbalized an understanding of this and is agreeable with the plan to be discharged home. Medical Records Medical records reviewed: Yes I reviewed the patient's medical records Lab Data Lab results reviewed: Yes I reviewed the patient's lab results Labs: Lab Results 02/06/25 02/06/25 Range/Units 15:05 15:44 WBC 9.5 (4.0-11.0) 10^3/uL RBC 4.58 (4.20-5.40) 10^6/uL Hgb 13.7 (12.0-16.0) g/dL Hct 41.4 (36.0-48.0) % MCV 90.4 (81.0-99.0) fL MCH 29.9 (26.7-34.0) pg MCHC 33.1 (29.9-35.2) g/dL RDW 12.4 (11.0-15.0) % Plt Count 252 (150-450) 10^3/uL MPV 9.2 L (9.5-13.5) fL Neut % (Auto) 70.6 (43.0-75.0) % Lymph % (Auto) 21.0 (20.5-60.0) % Mayes % (Auto) 6.8 (1.7-12.0) % Eos % (Auto) 0.8 L (0.9-7.0) % Baso % (Auto) 0.4 (0.2-2.0) % Neut # (Auto) 6.7 H (1.4-6.5) 10^3/uL Lymph # (Auto) 2.0 (1.2-3.8) 10^3/uL Mayes # (Auto) 0.6 (0.3-0.8) 10^3/uL Eos # (Auto) 0.1 (0.0-0.7) 10^3/uL Baso # (Auto) 0.0 (0.0-0.1) 10^3/uL Abs Immat Gran (auto) 0.04 H (0.00-0.03) 10^3/uL Imm/Tot Granulo (auto) 0.4 (0.0-0.5) % Sodium 142 (136-145) mmol/L Potassium 3.7 (3.5-5.1) mmol/L Chloride 104 (98-107) mmol/L Carbon Dioxide 25.6 (21.0-32.0) mmol/L Anion Gap 16.1 BUN 14.0 (7.0-18.0) mg/dL Creatinine 0.62 (0.55-1.02) mg/dL Est GFR ( Amer) >60 (>=60 mL/min/1.73m^2) Est GFR (Non-Af Amer) >60 (>=60 mL/min/1.73m^2) BUN/Creatinine Ratio 22.6 Glucose 89 (74-106) mg/dL Calcium 9.4 (8.5-10.1) mg/dL Total Bilirubin 0.8 (0.2-1.0) mg/dL AST 18 (15-37) U/L ALT 26 (14-59) U/L Alkaline Phosphatase 43 L (46-116) U/L Total Protein 7.5 (6.4-8.2) g/dL Albumin 4.2 (3.4-5.0) g/dL Globulin 3.3 g/dL Albumin/Globulin Ratio 1.3 Urine Color Lt. yellow (YELLOW) Urine Clarity Clear (CLEAR) Urine pH 6.0 (5.0-9.0) Ur Specific [place] <=1.005 A (1.005-1.025) Urine Protein Negative (NEG/TRACE) mg/dL Urine Glucose (UA) Negative (NEGATIVE) mg/dL Urine Ketones 15 A (NEGATIVE) mg/dL Urine Occult Blood Trace-i (NEGATIVE) Urine Nitrite Negative (NEGATIVE) Urine Bilirubin Negative (NEGATIVE) Urine Urobilinogen 0.2 (0.2-1.0) EU/dL Ur Leukocyte Esterase Negative (NEGATIVE) Urine RBC 0-2 (0-2) #/HPF Urine WBC None seen (NONE SEEN) #/HPF Ur Squamous Epith Cells Rare (NONE/RARE) #/LPF Urine Crystals None seen (None Seen) #/HPF Urine Bacteria None seen (NONE SEEN) #/HPF Urine Casts None seen (NONE SEEN) #/LPF Urine Mucus None seen (NONE SEEN) Ur Culture Indicated? No Imaging Data transvaginal US: Attestation: I have reviewed the pertinent imaging results. Radiologist's impression: ITS Impressions Transvaginal US 02/06/25 15:41 IMPRESSION: Along the superior aspect of the uterus near the left adnexa there is a 2.2 x 2.4 x 3.0 cm heterogeneous structure with isoechoic to hyperechoic solid components. This is of uncertain etiology but may represent a fibroid. The endometrium is normal in thickness and appearance measuring 2 mm in thickness. No evidence of retained products of conception within the endometrial canal. No evidence of ovarian ischemia. Impression dictated by: Rico Sullivan M.D. 02/06/2025 5:35 PM Dictation Location: [facility] Electronically authenticated by: [id number] Y Date: 02/06/2025 17:35 Discharge Plan Discharge Chief Complaint: Vaginal Bleeding Clinical Impression: Vaginal bleeding Patient Disposition: Home, Self-Care Print Language: Moldovan Additional Instructions: May take Tylenol and ibuprofen as needed for any pain. May apply warm compresses. Vaginal rest as discussed. Please follow-up with your primary ARMORED MACHINE OPERATOR or may follow-up with local ARMORED MACHINE OPERATOR for reevaluation as discussed. Referrals: Physician,Non-Staff, MD [Primary Care Provider] - 1 week Hamilton Silver DO [Physician, ARMORED MACHINE OPERATOR] - 1 week
[2025-02-06 16:43] LABS: Glucose Urine UA NEGATIVE (NEGATIVE)
[2025-02-06 16:51] LABS: Cast Seen? NONE SEEN #/LPF (NONE SEEN); Crystals Seen? None Seen #/HPF (None Seen)
[2025-02-06 16:52] LABS: Urine Culture Indicated NO
== END 2025-02-06 17:58 | disposition home or self-care (01) ==
PROVIDERS: Nurse Practitioner; Emergency Provider Emergency Medicine; Family Provider Family Medicine
DX: N93.9 Abnormal uterine and vaginal bleeding, unspecified (principal); Z98.890 Other specified postprocedural states
CPT/HCPCS: 36415; 76830; 80053; 81001; 85025; 99285